=== PATIENT | female | born 1940 | race Caucasian/White ===

== ENCOUNTER 2020-02-04 13:08 | Inpatient (IN) | payer MEDICARE, SELFPAY ==
[2020-02-04] VITALS (36 sets, daily range): BP systolic 110–158; BP diastolic 47–84; PULSE 43–75; RESP 8–23; TEMP 36.5; O2SAT 92–98; BMI 27.8
--- NOTE | 2020-02-04 13:11 | ED_ITS ---
Entered by Josseline Gonzalez, acting as scribe for RonaldoDagmar lee Noé HPI - Arrhythmia/Palpitations General: Chief Complaint: Arrhythmia/Palpitations Stated Complaint: BRADYCARDIA, generalized weakness Time Seen by Provider: 02/04/20 13:10 Source: patient and RN notes reviewed Mode of arrival: EMS Limitations: no limitations History of Present Illness: HPI narrative: symptmatic bradycardia, lethargic, became hypotensive while en route to ED, history hypertention patient states she began feeling bad about an hour ago, she said she has no energy and has not slept for 2 nights, kidney problems in the past, she said her R leg feels funny from the knee down and this began about 6 weeks ago, has had blood clots in her R leg in the past, no blood thinners Associated symptoms: Deny diaphoresis, nausea, pre-syncope, syncope or vomiting Review of Systems General: Reports: other (negative unless marked) Const: Reports: fatigue and malaise; Denies: fever, chills, body aches or diaphoresis Eyes: Denies: change in vision or blurry vision ENMT: Denies: throat pain, painful swallowing, hoarseness, ear pain, ear discharge, Change in hearing or nasal discharge Card: Denies: chest pain, palpitations, irregular heart rhythm, syncope, pre- syncope, shortness of breath on exertion or shortness of breath when lying down Resp: Denies: shortness of breath, productive cough, non-productive cough, wheezing, coughing up blood or chest congestion GI: Denies: abdominal pain, nausea, vomiting, vomiting blood, coffee grounds in vomit, diarrhea, constipation, cramping, blood in stool or black tarry stool : Denies: flank pain, painful urination, urinary frequency, urinary urgency, decreased urine ouput, urinary incontinence or blood in urine Musc: Denies: neck pain, back pain, extremity pain, extremity swelling, joint pain, joint swelling, joint warmth or joint stiffness Skin/Breast: Denies: rash, skin tenderness or yellow skin Neuro: Denies: headache, numbness in extremities, weakness in extremities, changes in sensation, lack of coordination, difficulty walking, dizziness, vertigo or confusion Endo: Denies: excessive thirst, tired all the time, cold intolerance, excessive sweating, flushing or hot flashes Chi/Lymph: Denies: easy bruising, easy bleeding, petechiae or enlarged lymph nodes All/Imm: Denies: hives, throat swelling, tongue swelling, facial swelling or acute wheezing PFSH ED PFSH: Medical History (Updated 02/04/20 @ 21:09 by Maria Fernanda Gregg, RN) Aftercare following left shoulder joint replacement surgery CVA (cerebral vascular accident) DJD (degenerative joint disease) History of DVT (deep vein thrombosis) History of tuberculosis Hypertension Surgical History (Updated 02/04/20 @ 21:09 by Maria Fernanda Gregg RN) H/O hysterectomy for benign disease H/O right knee surgery History of tonsillectomy and adenoidectomy Family History (Updated 02/04/20 @ 15:17 by Vincent Kessler MD) Other Diabetes Social History (Updated 02/04/20 @ 15:17 by Vincent Kessler MD) Smoking and tobacco status: never smoked Alcohol intake: never Physical Exam Const: COMMON NORMALS: no apparent distress, oriented x3, no limitations, healthy appearing and well nourished EXAM LIMITATIONS: no altered mental status GENERAL APPEARANCE: cooperative, well kempt and well developed ORIENTATION/CONSCIOUSNESS: Yes awake HENMT: COMMON NORMALS: normocephalic, head/scalp atraumatic, hearing grossly normal bilaterally, external ears normal, EAC's normal, external nose normal and moist oral mucous membranes HEAD & SCALP: normal to inspection, normocephalic and atraumatic FACE & SINUS: normal facial exam and face symmetric NOSE: external nose normal and nares normal EXTERNAL EAR: Yes external ears normal EXTERNAL AUDITORY CANAL: EAC's normal MOUTH: oral and palatal mucosa normal and tongue normal Eye: COMMON NORMALS: PERRL, EOMs intact bilaterally, conjunctivae normal and no scleral icterus GENERAL EYE: normal appearance of both eyes and normal light reflex CONJUNCTIVA: Yes conjunctivae normal SCLERA: sclerae normal CORNEA: Yes corneas normal PUPIL: Yes PERRL DIRECT OPHTHALMOSCOPY: Yes normal light reflex Neck/C-Spine: COMMON NORMALS: full ROM, no lymphadenopathy, supple, no meningeal signs and no JVD GENERAL: Yes normal visual inspection and Yes trachea midline CERVICAL SPINE: Yes cervical ROM normal Chest: COMMONS NORMALS: inspection of chest normal and palpation of chest normal Resp: COMMON NORMALS: normal respiratory effort, no retractions, no use of accessory muscles and clear to auscultation bilaterally EFFORT & INSPECTION: Yes able to speak in complete sentences AUSCULTATION: clear to auscultation bilaterally Cardio: COMMON NORMALS: no JVD, regular rhythm, S1 normal heart sound, S2 normal heart sound, no gallops, no clicks, no murmurs and no rub JUGULAR VENOUS DISTENTION: no JVD RATE: bradycardic RHYTHM: regular rhythm HEART SOUNDS: S1 normal and S2 normal GI: COMMON NORMALS: soft to palpation, non-tender, no hepatosplenomegaly and no masses INSPECTION: Yes normal to inspection PALPATION: Yes soft and Yes no hepatosplenomegaly : COMMON NORMALS: Yes no CVA tenderness BLADDER/KIDNEY EXAM: Yes no CVA tenderness Back/Pelvis: COMMON NORMALS: no CVA tenderness, thoracic and lumbar spine normal to inspection, no thoracic nor lumbar tenderness and thoraco-lumbar ROM normal Extremity: COMMON NORMALS: normal to inspection, full ROM, normal capillary refill, no joint enlargement, no clubbing, cyanosis or edema and no calf tenderness Neuro: COMMON NORMALS: oriented x3, CN's II-XII intact bilaterally, moves all extremities, no focal motor deficits and no sensory deficits noted MENINGEAL SIGNS: Yes no meningeal signs Psych: COMMON NORMALS: mental status grossly normal, thought process normal, cooperative, affect normal, speech normal and activity/motor behavior normal APPEARANCE: Yes well kempt SPEECH: Yes normal speech THOUGHT PROCESS: normal thought process Skin: COMMON NORMALS: no rashes or lesions noted, skin turgor normal, no jaundice, no petechiae and no mottling GENERAL SKIN EXAM: no rashes or l esions noted and turgor normal Course Vital Signs: Vital signs: Vital Signs Temperature 97.7 F 02/04/20 20:50 Pulse Rate 44 L 02/04/20 20:50 Respiratory Rate 23 H 02/04/20 20:50 Blood Pressure 112/65 02/04/20 20:50 Pulse Oximetry 97 02/04/20 20:50 MDM - Arrhythmia/Palpitations MDM Narrative: Medical decision making narrative: The case was reviewed with Dr. Kessler, he agrees to admission to the [facility]. The patient denies any chest pain or shortness of breath but remains bradycardic. Per review of her medications she is on metoprolol extended release 25 mg daily but this is not a new medication. She did start chlorthalidone recently but that is the only medication change that she is made. Lab Data: Attestation: I reviewed the patient's lab results. Labs: Lab Results 02/04/20 02/04/20 02/04/20 Range/Units 13:25 13:25 13:25 WBC 8.9 (4.0-10.0) 10^3/ uL RBC 4.32 (4.1-5.3) 10^6/u L Hgb 12.8 (11.5-15.3) g/dL Hct 38.8 (37.0-47.0) % MCV 89.8 (81-99) fL MCH 29.6 (28.0-34.0) pg MCHC 33.0 (30.0-36.0) g/dL RDW 13.6 (12.1-15.1) % Plt Count 194 (130-400) 10^3/c mm MPV 10.1 (7.4-10.4) fL Neut % (Auto) 69.2 % Lymph % (Auto) 22.3 % Sargent % (Auto) 5.5 % Eos % (Auto) 2.1 % Baso % (Auto) 0.7 % Neut # (Auto) 6.1 (1.8-7.7) 10^3/u L Lymph # (Auto) 2.0 (0.8-4.8) 10^3/u L Sargent # (Auto) 0.5 (0.2-0.9) 10^3/u L Eos # (Auto) 0.2 (0.0-0.8) 10^3/u L Baso # (Auto) 0.1 (0.0-0.1) 10^3/u L Nucleated RBC % (a uto) 0 % Nucleated RBCs # 0.0 /100WBC Sodium 131 L (136-145) mmol/L Potassium 3.8 (3.5-5.1) mmol/L Chloride 98 (98-107) mmol/L Carbon Dioxide 20 L (22-29) mmol/L Anion Gap 16.8 (5-19) BUN 34 H (8-23) mg/dL Creatinine 1.5 H (0.5-0.9) mg/dL Glucose 131 H (65-115) mg/dL Calculated Osmolal ity 271 L (285-295) mOsm/k g Calcium 10.1 (8.5-10.5) mg/dL Magnesium 2.6 H (1.7-2.3) mg/dL Total Bilirubin 0.4 (0.15-1.2) mg/dL AST 16 (0-32) U/L ALT 13 (0-33) U/L Alkaline Phosphata se 88 (35-105) IU/L Troponin T Baselin e 23 H (0-10) ng/mL Total Protein 7.1 (6.6-8.7) g/dL Albumin 4.0 (3.5-5.2) g/dL Globulin 3.1 (1.3-4.6) g/dL Imaging Data^: CT Head: Radiologist's impression: No acute intracranial findings [place] [address] CT Scan Report Signed Patient: Deepika Fang #: [id number] : 8At#:[id number] Age/Sex: 79 / FADM Date: 02/04/20 Loc: ERRoom/Bed: Attending Dr: Ordering Provider/Ordering MD: Dagmar Higgins DO Date of Service: 02/04/20 Procedure(s): CT head wo con* [id number] Accession Number(s): [id number] Report Number: [id number] WS: [id number] CT HEAD TECHNIQUE: Noncontrast CT of the head obtained from the skullbase to the vertex. CLINICAL INFORMATION: EASON/AMS COMPARISON: None. DLP: 784.[address] scans at [facility] use at least one of these dose optimiza tion techniques: automated exposure control; mA and/or kV adjustment per patient size (includes targeted exams where dose is matched to clinical indication); or iterative reconstruction. FINDINGS: No evidence of intracranial hemorrhage or mass effect. Ventricular system and basal cisterns are patent. Moderate to advanced small vessel changes with moderate parenchymal volume loss. Multiple chronic lacunar infarcts in the basal ganglia, right thalamus, right caudate. Chronic lacunar infarct right cerebellum. Dense right distal vertebral artery intracranial vascular calcification. Cavernous carotid calcification. Paranasal sinuses and mastoid air cells are well aerated. .Normal visualized soft tissues. Notified Dagmar Higgins at 02/04/2020 2:[address]/CT head wo con* [id number] IMPRESSION: 1. No evidence of intracranial hemorrhage or mass effect. 2. Moderate to advanced small vessel changes moderate parenchymal volume loss. 3. Chronic lacunar infarcts in the bilateral basal ganglia, right caudate, and right thalamus. 4. Chronic lacunar infarcts right cerebellum. 5. Dense intracranial vascular calcification. Dictated By:Osvaldo Lopez MD Signed By:Osvaldo Lopez MDSigned Date/Time:02/04/20 CXR: My impression: No acute cardiopulmonary findings. Radiologist's impression: [place] [address] XRay Report Signed Patient: Deepika Fang #: [id number] : 8Acct#:[id number] Age/Sex: 79 / FADM Date: 02/04/20 Loc: ERRoom/Bed: Attending Dr: Ordering Provider/Ordering MD: Dagmar Higgins DO Date of Service: 02/04/20 Procedure(s): XR chest 1V portable [id number] Accession Number(s): [id number] Report Number: [id number] WS: [id number] Portable AP upright chest, 02/04/2020 Clinical Data: cough Comparison: None. Findings: No nodules, masses or effusions are seen. The heart is enlarged. The pulmonary vascularity is not increased. No pneumonia or pneumothorax is seen. The aortic arch and descending aorta show calcification and tortuosity. There is an orthopedic anchor in the right greater tuberosity. A left shoulder arthroplasty is in place XR/XR chest 1V portable [id number] Impression: Cardiomegaly and atherosclerosis. Dictated By:Johana Calderón MD Signed By:Johana Calderón MDSigned Date/Time:02/04/20 Other Imaging: Radiologist's impression: [place] [address] Ultrasound Report Signed Patient: Deepika Fang #: [id number] : 8Acct#:[id number] Age/Sex: 79 / FADM Date: 02/04/20 Loc: ERRoom/Bed: Attending Dr: Ordering Provider/Ordering MD: Dagmar Higgins DO Date of Service: 02/04/20 Procedure(s): [place] [id number] Accession Number(s): [id number] Report Number: [id number] Deepika Fang Age: 79 Gender: F : 1940 Exam Date: 02/04/2020 13:27 Ordering Phys: Dagmar Higgins DO Technologist: Narciso Brandt [place]am Location[place] [facility] [place]ication: RT LEG PAIN AND EDEMA HISTORY: Lower extremity swelling. Lower extremity pain. PROCEDURES: Venous duplex imaging was performed in only the right lower extremity. The following venous structures were evaluated: common femoral vein, profunda vein, proximal portion of the greater saphenous vein, superficial femoral vein, and the popliteal vein. In addition, the posterior tibial and peroneal trunk were evaluated. FINDINGS: Normal 2-D Doppler and augmentation and compressibility throughout the lower extremity venous structures. Additional imaging through the proximal calf veins also reveals no thrombus. Limited evaluation of the greater saphenous vein is patent with no thrombus.. Normal 2-D Doppler and augmentation and compressibility throughout the lower extremity venous structures. Additional imaging through the proximal calf veins also reveals no thrombus. Limited evaluation of the greater saphenous vein is patent with no thrombus.. CONCLUSIONS Negative right lower extremity venous Doppler ultrasound. Dr. Johana Calderón MD (Electronically Signed) Final Date: 04 February 2020 14:05 Other Xray: Radiologist's impression: [address] [address] XRay Report Signed Patient: Deepika Fang #: [id number] : 1940cct#:[id number] Age/Sex: 79 / FADM Date: 02/04/20 Loc: ERRoom/Bed: Attending Dr: Ordering Provider/Ordering MD: Dagmar Higgins DO Date of Service: 02/04/20 Procedure(s): XR hip RT 2-3V wo/w pel* [id number] Accession Number(s): [id number] Report Number: [id number] WS: [id number] Right hip, AP and frog-leg, AP pelvis, 02/04/2020 Clinical Data: PAIN Comparison: None. Findings: No fractures or dislocations are seen. The hip joint is intact. The soft tissues are not remarkable. The adjacent pelvis is normal. The SI joints and pubic symphysis are unremarkable. There is a large amount of fecal material in the descending colon and rectum. XR/XR hip RT 2-3V wo/w pel* [id number] Impression: Negative right hip. Negative pelvis Dictated By:Johana Calderón MD Signed By:Johana Calderón MDSigned Date/Time:02/04/20 EKG Data^: EKG 1: Attestation: I personally reviewed and interpreted this EKG as follows: EKG interpretation date: 02/04/20 EKG interpretation time: 13:21 Interpretation: Normal sinus rhythm at 47 beats a minute, T waves inverted in 3 and aVF with nonspecific T wave findings in V4 through V6. Other EKG comments: Chest X-Ray 02/04/20 13:11 Impression: Cardiomegaly and atherosclerosis. Head CT 02/04/20 13:25 IMPRESSION: 1. No evidence of intracranial hemorrhage or mass effect. 2. Moderate to advanced small vessel changes moderate parenchymal volume loss. 3. Chronic lacunar infarcts in the bilateral basal ganglia, right caudate, and right thalamus. 4. Chronic lacunar infarcts right cerebellum. 5. Dense intracranial vascular calcification. Hip/Pelvis X-Ray 02/04/20 15:12 Impression: Negative right hip. Negative pelvis Discharge Plan Discharge Patient Disposition: Admitted As Inpatient Admit Provider: Vincent Kessler Clinical Impression: Symptomatic sinus bradycardia Condition: Stable Referrals: Alireza Syed [Primary Care Provider] - Discharge Date/Time: 02/04/20 20:21 Coding Level of Care Code ED Analyst Business Analysis for Chg Fwd Exam Comprehensive The documentation recorded by the Carlos lyn Valerie R, accurately reflects the service I personally performed and the decisions made by Ronaldo esqueda Eli N
--- NOTE | 2020-02-04 13:11 | ECG_ITS ---
Measurements Intervals Fosters Rate: 47 P: 69 MN: 173 QRS: -23 QRSD: 98 T: -38 QT: 478 QTc: 424 SINUS BRADYCARDIA LEFT VENTRICULAR HYPERTROPHY AND ST-T CHANGE [VOLTAGE CRITERIA PLUS ST/T ABN ABNORMALITY] INFERIOR MYOCARDIAL INFARCTION [40+ ms Q WAVE AND/OR ST/T ABNORMALITY IN II/aVF], OF INDETERMINATE AGE Compared to ECG 03/20/2019 11:17:25 ST (T wave) deviation now present Myocardial infarct finding now present T-wave abnormality no longer present Electronically Signed On 02-04-2020 20:17:58 CDT by Osmel Foster M.D. [id number]
--- NOTE | 2020-02-04 13:11 | XR_ITS ---
WS: [id number] Portable AP upright chest, 02/04/2020 Clinical Data: cough Comparison: None. Findings: No nodules, masses or effusions are seen. The heart is enlarged. The pulmonary vascularity is not increased. No pneumonia or pneumothorax is seen. The aortic arch and descending aorta show angela cification and tortuosity. There is an orthopedic anchor in the right greater tuberosity. A left shou lder arthroplasty is in place XR/XR chest 1V portable [id number] Impression: Cardiomegaly and atherosclerosis.
--- NOTE | 2020-02-04 13:25 | CT_ITS ---
WS: [id number] CT HEAD TECHNIQUE: Noncontrast CT of the head obtained from the skullbase to the vertex. CLINICAL INFORMATION: EASON/AMS COMPARISON: None. DLP: 784.[address] scans at [facility] use at least one of these dose optimization techniques: automat ed exposure control; mA and/or kV adjustment per patient size (includes targeted exams where dose is matched to clinical indication); or iterative reconstruction. FINDINGS: No evidence of intracranial hemorrhage or mass effect. Ventricular system and basal cisterns are olivares nt. Moderate to advanced small vessel changes with moderate parenchymal volume loss. Multiple chronic lacunar infarcts in the basal ganglia, right thalamus, right caudate. Chronic lacunar infarct right cerebellum. Dense right distal vertebral artery intracranial vascular c alcification. Cavernous carotid calcification. Paranasal sinuses and mastoid air cells are well aerated. .Normal visualized soft tissues. Notified Dagmar Higgins at 02/04/2020 2:[address]/CT head wo con* [id number] IMPRESSION: 1. No evidence of intracranial hemorrhage or mass effect. 2. Moderate to advanced small vessel changes moderate parenchymal volume loss. 3. Chronic lacunar infarcts in the bilateral basal ganglia, right caudate, and right thalamus. 4. Chronic lacunar infarcts right cerebellum. 5. Dense intracranial vascular calcification.
--- NOTE | 2020-02-04 13:25 | USCV_ITS ---
Deepika Fang Age: 79 Gender: F : 1940 Exam Date: 02/04/2020 13:27 Ordering Phys: Dagmar Higgins DO Technologist: Narciso Brandt Exam Location: [facility] [place] Indication: RT LEG PAIN AND EDEMA HISTORY: Lower extremity swelling. Lower extremity pain. PROCEDURES: Venous duplex imaging was performed in only the right lower extremity. The following venous structures were evaluated: common femoral vein, profunda vein, proximal portion of the greater saphenous vein, superficial femoral vein, and the popliteal vein. In addition, the posterior tibial and peroneal trunk were evaluated. FINDINGS: Normal 2-D Doppler and augmentation and compressibility throughout the lower extremity venous structures. Additional imaging through the proximal calf veins also reveals no thrombus. Limited evaluation of the greater saphenous vein is patent with no thrombus.. Normal 2-D Doppler and augmentation and compressibility throughout the lower extremity venous structures. Additional imaging through the proximal calf veins also reveals no thrombus. Limited evaluation of the greater saphenous vein is patent with no thrombus.. CONCLUSIONS Negative right lower extremity venous Doppler ultrasound. Dr. Johana Calderón MD (Electronically Signed) Final Date: 04 February 2020 14:05 S
[2020-02-04 13:33] LABS: Basophils # 0.1 10^3/uL (0.0-0.1); Basophils % 0.7 %; Eosinophils # 0.2 10^3/uL (0.0-0.8); Eosinophils % 2.1 %; Hematocrit 38.8 % (37.0-47.0); Hemoglobin 12.8 g/dL (11.5-15.3); Lymphocytes % 22.3 %; Mean Corpuscular Hemoglobin 29.6 pg (28.0-34.0); Mean Corpuscular Volume 89.8 fL (81-99); Mean Platelet Volume 10.1 fL (7.4-10.4); Monocytes # 0.5 10^3/uL (0.2-0.9); Monocytes % 5.5 %; Neutrophils # 6.1 10^3/uL (1.8-7.7); Neutrophils % 69.2 %; Nucleated Red Blood Cells % 0 %; Platelet Count 194 10^3/cmm (130-400); Red Blood Count 4.32 10^6/uL (4.1-5.3); Red Cell Distribution Width 13.6 % (12.1-15.1); White Blood Count 8.9 10^3/uL (4.0-10.0)
[2020-02-04 13:52] LABS: Alanine Aminotransferase 13 U/L (0-33); Alkaline Phosphatase 88 IU/L (35-105); Anion Gap 16.8 (5-19); Aspartate Amino Transferase 16 U/L (0-32); Blood Urea Nitrogen 34 mg/dL (8-23); Calcium 10.1 mg/dL (8.5-10.5); Carbon Dioxide 20 mmol/L (22-29); Chloride 98 mmol/L (98-107); Globulin 3.1 g/dL (1.3-4.6); Glucose 131 mg/dL (65-115); Magnesium 2.6 mg/dL (1.7-2.3); Osmolality Calculated 271 mOsm/kg (285-295); Potassium 3.8 mmol/L (3.5-5.1); Sodium 131 mmol/L (136-145); Total Bilirubin 0.4 mg/dL (0.15-1.2); Total Protein 7.1 g/dL (6.6-8.7)
[2020-02-04 13:53] LABS: Troponin(5th) Baseline 23 ng/mL (0-10)
--- NOTE | 2020-02-04 15:10 | PM.HP ---
Providers/Chief Complaint Primary Care Provider: Alireza Syed Chief Complaint: BRADYCARDIA History of Present Illness Deepika Fang is a 79 year old female who apparently was shopping, got picked up by her transport van and was very weak. It is unclear whether she fainted or not. When EMS arrived she had significant bradycardia, and was in the 30s. She received 0.5 mg of atropine. Again I am not for sure if she had syncope, and patient cannot give a clear history regarding this. She denies any chest pain, shortness of breath, or any symptoms currently. She reports no nausea or vomiting. She reports she has had some leg pain lately, and reports she has groin pain now. She denies any history of fall. She has had no recent fevers, cough, nasal congestion. She does report some right groin pain. Review of Systems General: Reports: 10 or more systems reviewed and unremarkable except in HPI and below Const: Denies: fever Eyes: Denies: blurry vision ENMT: Denies: throat pain Card: Denies: chest pain Resp: Denies: shortness of breath GI: Denies: abdominal pain or nausea : Denies: flank pain Musc: Reports: extremity pain; Denies: neck pain Skin/Breast: Denies: rash Neuro: Denies: numbness in extremities Psych: Denies: anxiety Endo: Denies: excessive urination Chi/Lymph: Denies: easy bruising All/Imm: Denies: hives Medications/Allergies Home Medications Medication Instructions Recorded Confirmed Last Taken Type amlodipine 10 mg PO DAILY 02/04/20 02/04/20 02/03/20 History aspirin 81 mg PO DAILY 02/04/20 02/04/20 02/03/20 History chlorthalidone 25 mg PO DAILY 02/04/20 02/04/20 02/03/20 History lisinopril 10 mg PO BID 02/04/20 02/04/20 02/03/20 History metoprolol succinate 50 mg PO DAILY 02/04/20 02/04/20 02/03/20 History Allergies Allergy/AdvReac Type Severity Reaction Status Date / Time No Known Allergies Allergy Verified 02/04/20 13:22 PFSH Acute PFSH: Medical History (Updated 02/04/20 @ 15:31 by Vincent Kessler MD) Aftercare following left shoulder joint replacement surgery CVA (cerebral vascular accident) DJD (degenerative joint disease) History of DVT (deep vein thrombosis) History of tuberculosis Hypertension Surgical History (Updated 02/04/20 @ 15:17 by Vincent Kessler MD) H/O hysterectomy for benign disease H/O right knee surgery History of tonsillectomy and adenoidectomy Family History (Updated 02/04/20 @ 15:17 by Vincent Kessler MD) Other Diabetes Social History (Updated 02/04/20 @ 15:17 by Vincent Kessler MD) Smoking and tobacco status: never smoked Alcohol intake: never Substance/Drug Use: never Vitals/I&O/Wt Last Vital Signs Pulse Ox 93 02/04/20 13:27 Weight last 48 hrs Weight 68.946 kg Physical Exam Narrative: EXAM NARRATIVE: General exam is a white female, in no apparent distress, conversive with slightly slurred speech which patient seems to indicate his baseline Neurologic: No obvious focal deficits. Slightly slurred speech is noted. Face is slightly asymmetric the patient reports this is from an old CVA HEENT: Pupils equally round. Oropharynx clear. Tongue midline. Neck is supple no lymphadenopathy or thyromegaly Cardiovascular bradycardic, 2/6 systolic murmur Lungs clear no wheezing or crackles Abdomen is soft with positive bowel sounds. No obvious organomegaly was deferred Extremities no cyanosis clubbing or edema, cap refill brisk Skin no rash Data : 02/04/20 13:25 02/04/20 13:25 Other data: EKG demonstrates sinus bradycardia, rate of 45, left axis deviation, T wave inversion inferior lateral Troponin slightly elevated at 23. LFTs normal. Right leg venous duplex negative for DVT Head CT with chronic lacunar infarcts bilateral basal ganglia, right caudate, right thalamus, nothing acute Chest x-ray cardiomegaly A&P Assessment and plan (1) Symptomatic sinus bradycardia: Presumably this is secondary to her metoprolol. We will hold this medicine currently. Monitor in [facility] secondary to her needing atropine for syncope or near syncope prior to arrival. Check echocardiogram Status: Acute Code(s): R00.1 - Bradycardia, unspecified (2) Right groin pain: No history of fall but will check x-ray right hip, pelvis Status: Acute Code(s): R10.31 - Right lower quadrant pain (3) Hyponatremia: Follow closely. Discontinue chlorthalidone. This was recently added prior to her syncopal or presyncopal event today Status: Acute Code(s): E87.1 - Hypo-osmolality and hyponatremia (4) Elevated troponin: Trend troponin Status: Acute Code(s): R79.89 - Other specified abnormal findings of blood chemistry Additional A&P Information Lovenox for DVT prophylaxis Full code currently Continue home medicines of aspirin, Norvasc, lisinopril Repeat laboratory in the morning Attestations Medical Necessity Statement*: Will need less than 2 midnight stay for evaluation of bradycardia Time Spent in Patient Care: Greater than 35 minutes Coding Level of Care Code Acute Service Crew Supervisor for [facility] Diagnoses Symptomatic sinus bradycardia R00.1 Right groin pain R10.31 Hyponatremia E87.1 Elevated troponin R79.89
--- NOTE | 2020-02-04 15:11 | ECG_ITS ---
Measurements Intervals [place] Rate: 43 P: 74 WV: 153 QRS: -22 QRSD: 107 T: -46 QT: 494 QTc: 421 SINUS BRADYCARDIA INFERIOR MYOCARDIAL INFARCTION [40+ ms Q WAVE AND/OR ST/T ABNORMALITY IN II/aVF], OF INDETERMINATE AGE WITH POSTERIOR EXTENSION MODERATE T-WAVE ABNORMALITY, CONSIDER LATERAL ISCHEMIA [-0.1+ mV T WAVE IN I/ I/aVL/V5/V6] Compared to ECG 03/20/2019 11:17:25 Myocardial infarct finding now present Possible ischemia now present T-wave abnormality still present Electronically Signed On 02-04-2020 20:19:49 CDT by Osmel Foster M.D. [id number]
--- NOTE | 2020-02-04 15:12 | XR_ITS ---
WS: [id number] Right hip, AP and frog-leg, AP pelvis, 02/04/2020 Clinical Data: PAIN Comparison: None. Findings: No fractures or dislocations are seen. The hip joint is intact. The soft tissues are not remarkable. The adjacent pelvis is normal. The SI joints and pubic symphysis are unremarkable. There is a large amount of fecal material in the descending colon and rectum. XR/XR hip RT 2-3V wo/w pel* [id number] Impression: Negative right hip. Negative pelvis
--- NOTE | 2020-02-04 15:45 | PC.NURSE ---
portable xray at bedside
--- NOTE | 2020-02-04 16:10 | PC.NURSE ---
tried to call report to ICU, nurse not available
[2020-02-04 16:17] LABS: Troponin 5 2HR 23.96 ng/mL (0-10); Troponin 5 2HR Delta 0.96 ABS# (0-10)
[2020-02-04 17:54] LABS: Thyroid Stimulating Hormone 2.57 uIU/mL (0.27-4.20)
[2020-02-04] MEDS: lisinopril 10 mg Tablet PO (18:39)
[2020-02-04] MEDS: enoxaparin 40 mg/0.4 mL Syringe SUBCUT (18:39)
--- NOTE | 2020-02-04 19:11 | ECG_ITS ---
Measurements Intervals [place] Rate: 50 P: 60 OK: 181 QRS: -29 QRSD: 96 T: -57 QT: 447 QTc: 408 SINUS BRADYCARDIA LEFT VENTRICULAR HYPERTROPHY AND ST-T CHANGE [VOLTAGE CRITERIA PLUS ST/T ABN ABNORMALITY] INFERIOR MYOCARDIAL INFARCTION , OF INDETERMINATE AGE WITH POSTERIOR EXTENSION [4 [40+ ms Q WAVE AND/OR ST/T ABNORMALITY IN II/aV Compared to ECG 02/04/2020 15:07:50 Left ventricular hypertrophy now present ST (T wave) deviation now present T-wave abnormality no longer present Possible ischemia no longer present Myocardial infarct finding still present Electronically Signed On 02-05-2020 18:22:50 CDT by Ramesh Chavez M.D. [id number]
[2020-02-04 22:03] LABS: Bilirubin Urine Neg (NEGATIVE); Blood Urine Neg (Negative); Glucose Urine UA Norm (Normal); Ketones Urine Negative (Negative); Leukocyte Esterase Urine 2+ (Negative); Nitrate Urine Negative (Negative); Protein Urine Neg (Negative); Squamous Epithelial Cell Urine 0-4 (0-5); Transitional Epi Cells Urine 0-4 /hpf; Urine Appearance SL Hazy (CLEAR); Urine Color Yellow (Yellow); Urobilinogen Urine Norm (Negative); WBC Urine 15-25 /hpf (0-5); pH Urine 6 (5-7)
[2020-02-04 22:04] LABS: Add Urine Culture? Yes; Bacteria Urine 2+
[2020-02-05] VITALS (48 sets, daily range): BP systolic 107–159; BP diastolic 48–80; PULSE 40–74; RESP 0–23; TEMP 36.3–36.5; O2SAT 88–98
--- NOTE | 2020-02-05 03:19 | PC.NURSE ---
Pt report bladder pressure and not being able to void all day. Pt has been uo to [facility] [place] 4x and produces 10-50 cc of urine at a time. Bladder scanner measures 668 cc urine. Physician notified.
[2020-02-05 04:41] LABS: Basophils % 0.5 %; Eosinophils # 0.2 10^3/uL (0.0-0.8); Eosinophils % 2.9 %; Hematocrit 36.4 % (37.0-47.0); Hemoglobin 12.1 g/dL (11.5-15.3); Lymphocytes # 2.4 10^3/uL (0.8-4.8); Mean Corpuscular HGB Conc 33.2 g/dL (30.0-36.0); Mean Corpuscular Hemoglobin 29.7 pg (28.0-34.0); Mean Corpuscular Volume 89.4 fL (81-99); Mean Platelet Volume 10.5 fL (7.4-10.4); Monocytes # 0.6 10^3/uL (0.2-0.9); Monocytes % 7.8 %; Neutrophils # 4.9 10^3/uL (1.8-7.7); Neutrophils % 59.6 %; Nucleated Red Blood Cells % 0 %; Platelet Count 198 10^3/cmm (130-400); Red Blood Count 4.07 10^6/uL (4.1-5.3); Red Cell Distribution Width 13.5 % (12.1-15.1); White Blood Count 8.2 10^3/uL (4.0-10.0)
[2020-02-05 05:09] LABS: Anion Gap 15.6 (5-19); Blood Urea Nitrogen 33 mg/dL (8-23); Carbon Dioxide 25 mmol/L (22-29); Chloride 94 mmol/L (98-107); Glucose 92 mg/dL (65-115); Osmolality Calculated 269 mOsm/kg (285-295); Potassium 3.6 mmol/L (3.5-5.1); Sodium 131 mmol/L (136-145)
[2020-02-05] MEDS: FUROsemide 20 mg Tablet PO (08:54)
[2020-02-05] MEDS: aspirin 81 mg Chew Tablet PO (08:54)
[2020-02-05] MEDS: cefUROXime 250 mg Tablet PO (08:54)
[2020-02-05] MEDS: lisinopril 10 mg Tablet PO ×2 (08:55→18:28)
[2020-02-05] MEDS: amlodipine 10 mg Tablet PO (08:55)
[2020-02-05] MEDS: tamsulosin 0.4 mg Capsule PO (08:55)
--- NOTE | 2020-02-05 12:29 | PM.PN ---
Subjective Subjective: Interval history: Deepika had some issues urinating last night, as she does this morning. A straight cath was performed last night and a Hopkins is going to be placed today. She reports no other complaints and denies any chest pain or shortness of breath. Medications: Reviewed: Yes Vitals/I&O/Wt Last Vital Signs Temp 97.4 F L 02/05/20 08:00 Pulse 54 L 02/05/20 09:00 Resp 19 H 02/05/20 09:00 BP 159/56 02/05/20 09:00 Pulse Ox 94 02/05/20 09:00 02/04/20 02/05/20 02/05/20 22:59 06:59 14:59 Intake Total 300 / 300 120 / 120 Output Total 30 / 30 600 / 630 Balance -30 / -30 -300 / -330 120 / 120 Weight last 48 hrs Weight 68.946 kg Physical Exam Narrative: EXAM NARRATIVE: General exam is no apparent distress Cardiovascular bradycardic, 2/6 systolic murmur. No severe bradycardia. No symptomatic bradycardia. Lungs clear no wheezing or crackles Abdomen is soft with positive bowel sounds. No obvious organomegaly Extremities no cyanosis clubbing or edema, cap refill brisk Data : 02/05/20 04:00 02/05/20 04:00 A&P Assessment and plan (1) Symptomatic sinus bradycardia: Presumably this is secondary to her metoprolol. But he is urinary retention. Await echocardiogram Status: Acute Code(s): R00.1 - Bradycardia, unspecified (2) Right groin pain: No history of fall but will check x-ray right hip, pelvis X-ray showed no evidence of fracture Status: Acute Code(s): R10.31 - Right lower quadrant pain (3) Hyponatremia: Still present. Holding chlorthalidone Status: Acute Code(s): E87.1 - Hypo-osmolality and hyponatremia (4) Elevated troponin: Trend troponin No significant delta Status: Acute Code(s): R79.89 - Other specified abnormal findings of blood chemistry Additional A&P Information Urinary retention, and urine consistent with UTI. Will place Hopkins. Discontinue cefuroxime she was placed on by mouth and initiate Rocephin. Await urine culture. May need outpatient urology follow-up. Certainly urinary retention could be secondary to UTI but may need further investigation if it persists Lovenox for DVT prophylaxis Full code currently Continue home medicines of aspirin, Norvasc, lisinopril Physical therapy consultation Attestations Medical Necessity Statement*: Needs continued hospital stay secondary to persistent bradycardia, urinary retention, UTI possibly causing urinary retention Coding Level of Care Code Acute Psychological Operations for Chg Fwd Diagnoses Symptomatic sinus bradycardia R00.1 Right groin pain R10.31 Hyponatremia E87.1 Elevated troponin R79.89
[2020-02-05] MEDS: cefTRIAXone 1,000 MG in sodium chloride 0.9% (plus) 50 ML 100 MG IV (13:58)
--- NOTE | 2020-02-05 15:59 | PC.OT ---
OT note: Screen completed. Pt able to independently progress from supine to sit, doff and don socks, stand and take a few steps with cane, then get back into bed. Pt reported she is able to complete basic self-cares. She does HEP at bed level multiple times a day. No further OT recommended at this time.
[2020-02-05] MEDS: enoxaparin 40 mg/0.4 mL Syringe SUBCUT (16:06)
--- NOTE | 2020-02-05 16:36 | PC.NURSE ---
Report given to CLARITA Lawton. Transferred patient to room 104 via wheelchair with all of her belongings. Oriented patient to room, assisted her into bed, bed in lowest position, given call light, side rails up x2. CLARITA Lawton notified patient was in room. HULL BUILDER at bedside.
--- NOTE | 2020-02-05 16:47 | USCV_ITS ---
Deepika Fang Age: 79 Gender: F : 1940 Exam Date: 02/05/2020 06:28 Ordering Phys: Vincent Kessler MD Technologist: Narciso Brandt [place] [facility] [place] Indication: ARRHYTHMIA, BRADYCARDIA BP: 151 / 63 HR: 54 Rhythm: Sinus Technical Quality: Adequate MEASUREMENTS (Male / Female) Normal Values 2D ECHO LV Diastolic Diameter PLAX 5.0 cm 4.2 - 5.9 / 3.9 - 5.3 cm LV Systolic Diameter PLAX 3.1 cm IVS Diastolic Thickness 0.9 cm 0.6 - 1.0 / 0.6 - 0.9 cm IVS Systolic Thickness 1.1 cm LVPW Diastolic Thickness 0.9 cm 0.6 - 1.0 / 0.6 - 0.9 cm LVPW Systolic Thickness 1.3 cm LVOT Diameter 2.0 cm LV Ejection Fraction 2D Teich 66.3 % LV Ejection Fraction MOD 2C 41.2 % LV Ejection Fraction 2C AL 41.2 % LA Diameter 5.2 cm LA Width 3.8 cm LA Height 4.6 cm RA Width 3.0 cm RA Height 3.4 cm Aorta at Sinotubular Diameter 2.6 cm M-MODE LV Diastolic Diameter MM 6.7 cm 4.2 - 5.9 / 3.9 - 5.3 cm LV Systolic Diameter MM 5.0 cm LV Ejection Fraction MM Teich 48.6 % IVS Diastolic Thickness MM 0.8 cm 0.6 - 1.0 / 0.6 - 0.9 cm IVS Systolic Thickness MM 1.5 cm LVPW Diastolic Thickness MM 1.3 cm 0.6 - 1.0 / 0.6 - 0.9 cm LVPW Systolic Thickness MM 1.5 cm RV Diastolic Diameter MM 1.4 cm Aortic Annulus Diameter 2.9 cm LA Ao Ratio MM 1.8 MV E Point Septal Separation 0.8 cm DOPPLER AV Peak Velocity 175.0 cm/s LVOT Peak Velocity 85.0 cm/s AV Area Cont Eq vti 1.5 cm squared AV Area Cont Eq pk 1.6 cm squared MV Area PHT 5.0 cm squared Mitral E to A Ratio 0.8 MV E' Velocity 7.0 cm/s Mitral E to MV E' Ratio 14.6 Mitral E to LV E' Lateral Ratio 14.3 Mitral E to LV E' Septal Ratio 15.0 TR Peak Velocity 284.0 cm/s TR Peak Gradient 32.3 mmHg TV Peak E Velocity 67.0 cm/s Right Atrial Pressure 3.0 mmHg Pulmonary Artery Systolic Pressu 35.3 mmHg FINDINGS Left Ventricle Normal left ventricular cavity size. Normal left ventricular systolic function. Left ventricular ejection fraction is estimated at 55 %. No regional wall motion abnormalities. Basal septal hypertrophy. Grade 1 diastolic dysfunction with elevated left atrial filling pressure. Right Ventricle Normal right ventricular size and systolic function. Right ventricular systolic pressure 35.3 mmHg. Right Atrium Normal right atrial size. Left Atrium Mildly increased left atrial size. Mitral Valve Marked mitral annular calcification. Thickened and calcified mitral valve. No mitral valve stenosis. Mild mitral valve regurgitation. Aortic Valve Aortic valve not well visualized. Aortic valve sclerosis without stenosis or regurgitation. Tricuspid Valve Structurally normal tricuspid valve. No tricuspid valve stenosis. Mild tricuspid valve regurgitation. Pulmonic Valve Pulmonic valve not well visualized. Trace pulmonary valve regurgitation. Pericardium No pericardial effusion. Aorta Normal-sized aortic root. CONCLUSIONS 1. Normal left ventricular cavity size and systolic function. Left ventricular ejection fraction is estimated at 55 %. No regional wall motion abnormalities. Basal septal hypertrophy. Grade 1 diastolic dysfunction with elevated left atrial filling pressure. 2. Normal right ventricular size and systolic function. 3. Mildly increased left atrial size. 4. Mild mitral and tricuspid valve regurgitation. 5. No prior similar studies to compare. Jazzy Villa MD (Electronically Signed) Final Date: 05 February 2020 17:47 S
[2020-02-06] VITALS: BP 156/60; PULSE 49; RESP 17; TEMP 36.8; O2SAT 90
[2020-02-06 04:00] VITALS: BP 162/48; PULSE 14; TEMP 37; O2SAT 92
[2020-02-06 05:00] LABS: Basophils % 0.5 %; Eosinophils # 0.3 10^3/uL (0.0-0.8); Eosinophils % 2.9 %; Hematocrit 33.4 % (37.0-47.0); Lymphocytes # 2.6 10^3/uL (0.8-4.8); Lymphocytes % 30.6 %; Mean Corpuscular HGB Conc 35.9 g/dL (30.0-36.0); Mean Corpuscular Hemoglobin 32.2 pg (28.0-34.0); Mean Corpuscular Volume 89.5 fL (81-99); Mean Platelet Volume 10.8 fL (7.4-10.4); Monocytes # 0.6 10^3/uL (0.2-0.9); Monocytes % 7.3 %; Neutrophils % 58.3 %; Nucleated Red Blood Cells % 0 %; Platelet Count 179 10^3/cmm (130-400); Red Blood Count 3.73 10^6/uL (4.1-5.3); Red Cell Distribution Width 13.5 % (12.1-15.1); White Blood Count 8.6 10^3/uL (4.0-10.0)
[2020-02-06 05:03] LABS: Anion Gap 17.3 (5-19); Blood Urea Nitrogen 34 mg/dL (8-23); Calcium 9.5 mg/dL (8.5-10.5); Carbon Dioxide 23 mmol/L (22-29); Chloride 94 mmol/L (98-107); Glucose 100 mg/dL (65-115); Osmolality Calculated 269 mOsm/kg (285-295); Potassium 3.3 mmol/L (3.5-5.1); Sodium 131 mmol/L (136-145)
[2020-02-06 07:54] VITALS: BP 110/57; PULSE 55; RESP 19; TEMP 36.7; O2SAT 94
[2020-02-06] MEDS: amlodipine 10 mg Tablet PO (08:22)
[2020-02-06] MEDS: lisinopril 10 mg Tablet PO (08:23)
[2020-02-06] MEDS: tamsulosin 0.4 mg Capsule PO (08:23)
[2020-02-06] MEDS: aspirin 81 mg Chew Tablet PO (08:23)
[2020-02-06] MEDS: FUROsemide 20 mg Tablet PO (08:23)
--- NOTE | 2020-02-06 10:59 | PC.CHAP ---
Pastoral Care Encounter/Spiritual Assessment Type of Contact [] Declined as400 programmer visit [] Patient/Family/Request visit [] Outpatient visit [] Follow-up visit [] Physician referral [] Code/Alert [x] Routine visit [] Staff referral [] Actively dying [] Patient sleeping [] Family support [] [] Out of room [] Palliative care [] [] Receiving care in room [] Pre-surgical visit [] Trauma [] Long length of stay [] ICU visit [] Other: Relational/Emotional Strength [x] Patient feels connected with others/family/visitors/staff [] Distress [] Loneliness/isolation [] Abandonment Spirituality of Patient [x] Person of Mariela [x] Attends Judaism of their Mariela [x] Believes in Prayer [x] Reads Bible or Bahai materials [] There are Spiritual issues to be addressed Tongue And Groove Machine Feeder Interventions [x] Prayer [x] Active listening [x] Non-anxious presence [x] Spiritual/emotional support [] Crisis/trauma care [x] Spiritual counseling [] Bereavement support [] Provided bereavement packet [] Provided Bible/devotional materials [] Provided toy/stuffed animal, coloring book to patient or family member [] Provided Communion [] Anointing/[place] [] Salvation [] Completed spiritual assessment [] Other: Impact on Illness or Injury [] Angry [] Fearful [] Anxious [] Often cries [] Exhaustion [] Unable to work [] Unable to attend catholic [] Unable to walk/stand [] Unable to read [] Unable to drive [] Unable to eat/drink [] Unable to sleep [] Unable to be with family [] Patient intubated [x] Other: Summary Patient is , has children who live [place] the [facility] and has friends who look in on her and provide help. Time spent with patient 10 minutes
[2020-02-06 11:19] VITALS: BP 161/67; PULSE 62; RESP 13; TEMP 37; O2SAT 94
--- NOTE | 2020-02-06 12:30 | P.DS_ITS ---
Discharge Providers Date of Admission: 02/05/20 12:35 Date of Discharge: February 06, 2020 Attending Provider at Admission: Vincent Kessler MD Attending Provider at Discharge: Vincent Kessler MD Primary Care Provider: Alireza Syed Diagnoses at Discharge Discharge Diagnosis (1) Symptomatic sinus bradycardia: Status: Acute Problem details: Improved with discontinuation of metoprolol (2) Right groin pain: Status: Acute Problem details: Improved. X-rays negative for fracture (3) Hyponatremia: Status: Acute Problem details: Stable. To follow-up in clinic (4) Elevated troponin: Status: Acute Problem details: No significant delta Reason for Visit Reason for Visit: Reason For Visit: BRADYCARDIA Hospital Course Hospital Course: Deepika is an 79-year-old white female that had a presyncopal episode or possibly syncopal episode. By paramedics her heart rate was significantly low and she received atropine. While in the emergency department she was found to be in sinus bradycardia, but did not need any further atropine. Blood pressure was stable. She was placed in the hospital, and her beta- aurea held. CT head demonstrated no acute findings. Echocardiogram demonstrated preserved EF, no severe valvular abnormalities. Venous duplex was done which was negative and a hip and pelvis x-ray secondary to some right hip pain was done which was negative. She did have some concerns for UTI while in the hospital with urinary retention. She was placed on antibiotics. Culture was not completed upon discharge but with receiving Rocephin in the hospital as well as Flomax urinary retention improved and she was able to urinate a when her Hopkins catheter was removed. She will follow-up with her primary care provider in 3 to 5 days with a BMP. This will be to recheck her sodium which was slightly low. Her chlorthalidone was discontinued and she was placed on Lasix. While in the hospital heart rate improved to upper 40s, to 60s with ambulation and she was asymptomatic. Physical Exam Narrative: EXAM NARRATIVE: General exam no apparent distress Cardiovascular regular rate and rhythm without murmur Lungs clear Abdomen is soft with positive bowel sounds Extremities no cyanosis clubbing or edema Urinary Catheter Management^: Hopkins: Cath Placed During This Visit: yes, but has since been removed by the nurse Reason for Continuing Indwelling Catheter: Acute Urinary Retention or Obstruction Urinary Catheter Date of Insertion: 02/05/20 Urinary Catheter Time of Insertion: 12:30 Date Urinary Catheter Removed: 02/06/20 Time Urinary Catheter Discontinued: 10:48 Discharge Data Data Completed and Pending: Completed Studies During Hospitalization Category Date Time Status CT head wo con* 7 0450 Urgent Cat Scan 02/04/20 13:25 Completed XR chest 1V francesca ble [id number] Stat Exams 02/04/20 13:11 Completed XR hip RT 2-3V wo /w pel* [id number] Stat Exams 02/04/20 15:12 Completed CV echo complete* [id number] Routine Ultrasound 02/05/20 16:47 [place] [id number] Urgent Ultrasound 02/04/20 13:25 Completed Pending at discharge Category Date Time Status Urine Culture Sta t Lab 02/04/20 21:30 Received Labs from last 24 hours 02/06/20 02/06/20 03:32 03:32 WBC 8.6 RBC 3.73 L Hgb 12.0 Hct 33.4 L MCV 89.5 MCH 32.2 MCHC 35.9 D RDW 13.5 Plt Count 179 MPV 10.8 H Neut % (Auto) 58.3 Lymph % (Auto) 30.6 [place] % (Auto) 7.3 Eos % (Auto) 2.9 Baso % (Auto) 0.5 Neut # (Auto) 5.0 Lymph # (Auto) 2.6 [place] # (Auto) 0.6 Eos # (Auto) 0.3 Baso # (Auto) 0.0 Nucleated RBC % (a uto) 0 Nucleated RBCs # 0.0 Sodium 131 L Potassium 3.3 L Chloride 94 L Carbon Dioxide 23 Anion Gap 17.3 BUN 34 H Creatinine 1.3 H Glucose 100 Calculated Osmolal ity 269 L Calcium 9.5 Vitals: Last Vital Signs Temp 98.6 F 02/06/20 11:19 Pulse 62 02/06/20 11:19 Resp 13 02/06/20 11:19 BP 161/67 02/06/20 11:19 Pulse Ox 94 02/06/20 11:19 Discharge Plan Discharge Patient Disposition: Home, Self-Care Condition: Stable Prescriptions: New tamsulosin 0.4 mg Capsule 0.4 mg PO DAILY Qty: 30 RF: 0 furosemide 20 mg Tablet 20 mg PO DAILY@0800 Qty: 30 RF: 0 cefuroxime axetil 250 mg tablet 250 mg PO BID 7 Days Qty: 14 RF: 0 Continued amlodipine 10 mg Tablet 10 mg PO DAILY RF: 0 lisinopril 10 mg Tablet 10 mg PO BID RF: 0 aspirin 81 mg Tablet,Chewable 81 mg PO DAILY RF: 0 Discontinued metoprolol succinate 50 mg Tablet Extended Release 24 Hr 50 mg PO DAILY RF: 0 chlorthalidone 25 mg Tablet 25 mg PO DAILY RF: 0 Referrals: Alireza Syed [Primary Care Provider] - 4-7 days Discharge Diet: Cardiac Discharge Activity: Increase activity as tolerated Activity Restrictions/Additional Instructions: Take all medicine as prescribed Follow-up with primary care provider 3 to 5 days. Note medicine adjustment Discharge Attestations Time Spent in Discharge Care*: greater than 30 min Quality Metrics Clinical Quality Measures During this hospital stay, did patient experience: None Coding Level of Care Code Acute Janitor Cleaner for Kade Rodríguez Diagnoses Symptomatic sinus bradycardia R00.1 Right groin pain R10.31 Hyponatremia E87.1 Elevated troponin R79.89
[2020-02-06 12:53] VITALS: BP 161/67; PULSE 62; RESP 13; TEMP 37; O2SAT 94
--- NOTE | 2020-02-06 13:21 | PC.NURSE ---
PATIENT GIVEN DISCHARGE INSTRUCTIONS AND VERBALIZED UNDERSTANDING ; VSS ; PATIENT DENIED ANY CP OR SOB AT THIS TIME ; IV REMOVED AND PRESSURE DRESSING APPLIED WITH NO BLEEDING NOTED ; PATIENT TO EXIT VIA WHEELCHAIR WITH [place] COMMUNITY SERVICE MANAGER
== END 2020-02-06 13:25 | disposition home or self-care (01) | DRG 309 ==
LOC: ER 14:38 → ICU 16:12 → CSU 02-05 16:26
PROVIDERS: Admitting Provider Internal Medicine; Emergency Provider Emergency Medicine; Family Provider Family Medicine; PCP Family Medicine; Visit Provider Internal Medicine
DX: R00.1 Bradycardia, unspecified (principal); E87.1 Hypo-osmolality and hyponatremia; R33.9 Retention of urine, unspecified; R10.31 Right lower quadrant pain; R79.89 Other specified abnormal findings of blood chemistry; T44.7X5A Adverse effect of beta-adrenoreceptor antagonists, initial encounter; Z79.82 Long term (current) use of aspirin; Z79.83 Long term (current) use of bisphosphonates; Z79.811 Long term (current) use of aromatase inhibitors; Z79.899 Other long term (current) drug therapy
CPT/HCPCS: 12345; 36415; 51702; 70450; 71045; 73502; 80048; 80053; 81001; 83735; 84443; 84484; 85025; 87086; 93005; 93306; 93971; 96372; 97161; 97530; 99283; G0378; J0696; J1650

== ENCOUNTER 2022-10-19 10:55 | Outpatient (CLI) | payer MEDICARE, SELFPAY ==
--- NOTE | 2022-10-19 11:51 | USCV_ITS ---
Deepika Fang Age: 82 Gender: F : 1940 Exam Date: 10/19/2022 12:16 Ordering Phys: Alireza Syed XX Technologist: [place] [facility] [place] CHRONIC HEART FAILURE BP: 160 / 80 HR: 38 Rhythm: Sinus Technical Quality: Adequate MEASUREMENTS (Male / Female) Normal Values 2D ECHO LVOT Diameter 2.0 cm LV Ejection Fraction MOD 2C 37.3 % LV Ejection Fraction 2C AL 36.8 % LA Diameter 3.8 cm LA Width 4.7 cm LA Height 4.8 cm RA Width 3.6 cm RA Height 3.4 cm Aorta at Sinotubular Diameter 2.2 cm IVC Diameter 1.6 cm M-MODE Aortic Annulus Diameter 2.1 cm LA Ao Ratio MM 1.4 MV E Point Septal Separation 0.2 cm DOPPLER AV Peak Velocity 183.0 cm/s LVOT Peak Velocity 87.0 cm/s AV Area Cont Eq vti 1.6 cm squared AV Area Cont Eq pk 1.5 cm squared MV Peak Velocity 137.0 cm/s MV Area PHT 6.3 cm squared Mitral E to A Ratio 1.4 MV E' Velocity 74.5 cm/s Mitral E to MV E' Ratio 26.4 Mitral E to LV E' Lateral Ratio 23.4 Mitral E to LV E' Septal Ratio 31.0 TR Peak Velocity 343.3 cm/s TR Peak Gradient 47.1 mmHg TR Mean Velocity 270.7 cm/s TR Mean Gradient 30.9 mmHg TR Velocity Time Integral 109.4 cm TV Peak E Velocity 32.0 cm/s Right Atrial Pressure 3.0 mmHg Pulmonary Artery Systolic Pressu 50.1 mmHg PV Peak Velocity 93.0 cm/s RV Acceleration Time 0.1 s RV Ejection Time 0.3 s RV AcT/ET 0.4 FINDINGS Left Ventricle Left ventricle appears to be dilated. LV systolic function is mildly reduced with EF of 40 to 45%. Mild global hypokinesis seen. Moderate hypokinesis of the inferior wall. Basal septal hypertrophy is seen. Right Ventricle Normal in size and function Right Atrium Nomal in size Left Atrium Dilated Mitral Valve Moderate mitral annular calcification. Mitral valve leaflets are thickened. Moderate to severe mitral regurgitation. Aortic Valve Aortic valve is thickened. No significant stenosis or regurgitation. Tricuspid Valve Mild tricuspid regurgitation. RVSP is 50 to 55 mmHg. This is consistent with moderate pulmonary hypertension. Pulmonic Valve Not well-visualized. Trace pulmonic regurgitation Pericardium Normal Aorta Normal in size IVC Appears to be normal CONCLUSIONS LV systolic function mildly reduced with EF of 40 to 45%. Moderate to severe hypokinesis of inferior wall. Mild global hypokinesis. Basal septal hypertrophy Dilated left atrium Moderate mitral annular calcification seen. Mitral valve leaflets are thickened. Moderate to severe mitral regurgitation. Mild tricuspid regurgitation Moderate pulmonary hypertension Trace pulmonary regurgitation Compared to prior echocardiogram from 2019, LV systolic function has decreased and is 40-45% now. Héctor Fam MD (Electronically Signed) Final Date: 02 November 2022 17:40 S
== END 2022-10-19 10:56 | disposition home or self-care (01) ==
PROVIDERS: PCP Family Medicine; Visit Provider Family Medicine
DX: I50.9 Heart failure, unspecified (principal); I08.1 Rheumatic disorders of both mitral and tricuspid valves
CPT/HCPCS: 93306

== ENCOUNTER → 2022-10-26 10:13 | Outpatient (BNVA) | payer MEDICARE, SELFPAY | PROVIDERS: PCP Family Medicine; Visit Provider Internal Medicine Cardiovascular Disease | DX: I25.10 Atherosclerotic heart disease of native coronary artery without angina pectoris (principal); I35.0 Nonrheumatic aortic (valve) stenosis; I11.0 Hypertensive heart disease with heart failure; I50.20 Unspecified systolic (congestive) heart failure; Z86.73 Personal history of transient ischemic attack (TIA), and cerebral infarction without residual deficits | CPT/HCPCS: 99214 ==